=== PATIENT | female | born 1990 | race Two or more races ===

== ENCOUNTER 2024-08-13 19:50 | Emergency (ER) | payer OTHER ==
[~2024-08-13] VITALS: Ht 152.4 cm; Wt 65.8 kg
[2024-08-13] MEDS ORDERED: IBUPROFEN 800 MG TABLET ONE (21:41)
[2024-08-13] MEDS: IBUPROFEN 800 MG TABLET PO ONE (21:44)
[2024-08-13 22:37] VITALS: BP 111/68; O2SAT 98
== END 2024-08-13 22:30 | disposition home or self-care (01) ==
LOC: ER 19:50
DX: S09.8XXA Other specified injuries of head, initial encounter (principal); F07.81 Postconcussional syndrome; F32.A Depression, unspecified; W22.8XXA Striking against or struck by other objects, initial encounter; Y93.89 Activity, other specified; Y92.89 Other specified places as the place of occurrence of the external cause; Y99.8 Other external cause status
CPT/HCPCS: 70450; 72125; A4606; A4663